=== PATIENT | female | born 1970 | race Caucasian/White ===

== ENCOUNTER → 2016-05-11 | Outpatient (CLI) | payer BC ==
[~2016-05-11] MED LIST: ALBU0.5N2 INH; ALBUAER; BCPILLS; CHOL100027 PO; DROS3TAB12; FEXO1POW; GLIP-197 PO; GLIP2.5T11 PO; LEVO-366; LISI-787 PO; LISIPOW; MONT1TAB3 PO; OMEGCAP2 PO; SYMIN INH
--- NOTE | 2016-05-11 12:01 | DIAGNOSTIC IMAGING REPORT ---
CHEST 2 VIEWS ROUTINE CLINICAL HISTORY: Cough. Asthma exacerbation. COMPARISON STUDY: Chest radiograph June 25, 2011. FINDINGS: Left lung is clear. There is mild right lower lung airspace opacity. Cardiac size is normal. Metastatic contours are normal. There is no evidence of pulmonary edema. IMPRESSION: Mild right lower lung opacity which may reflect an area of pneumonia. Radiographic follow-up to ensure resolution is recommended. Electronically signed by: Dani Argueta M.D. 05/11/2016 11:59 AM Dictated Date/Time: 05/11/2016 11:58 AM
== END | disposition home or self-care (01) ==
LOC: C.RAD1850 11:45
PROVIDERS: ATTEND Family Medicine
DX: J45.901 Unspecified asthma with (acute) exacerbation (principal)

== ENCOUNTER → 2016-06-22 | Outpatient (CLI) | payer BC ==
--- NOTE | 2016-06-23 12:48 | MAMMOGRAPHY REPORT ---
BILATERAL DIGITAL SCREENING MAMMOGRAM TOMOSYNTHESIS WITH CAD: 06/22/2016 CLINICAL HISTORY: Routine screening. Patient has no complaints. TECHNIQUE: Breast tomosynthesis in addition to standard 2D mammography was performed. Current study was also evaluated with a Computer Aided Detection (CAD) system. COMPARISON: Comparison is made to exams dated: 06/18/2015 mammogram, 05/15/2014 mammogram, 05/16/2013 juliet mogram, 04/30/2013 mammogram, 04/25/2012 mammogram, and 04/22/2011 mammogram - [facility] [place]. BREAST COMPOSITION: There are scattered areas of fibroglandular density in both breasts. FINDINGS: There is a metallic biopsy marker within a stable subcentimeter mass in the upper outer po sterior right breast. No new suspicious mass, architectural distortion or cluster of microcalcifica tions is seen. IMPRESSION: ACR BI-RADS CATEGORY 1: NEGATIVE There is no mammographic evidence of malignancy. A 1 year screening mammogram is recommended. The p atient will receive written notification of the results. Approximately 10% of breast cancers are not detected with mammography. A negative mammographic repor t should not delay biopsy if a clinically suggestive mass is present. Lou Chang M.D. ay/:06/23/2016 07:24:14 Trend Investigator: Suzie EPRKINS)(M), [facility] letter sent: Normal 1/2 BI-RADS Code: ACR BI-RADS Category 1: Negative
== END | disposition home or self-care (01) ==
LOC: C.MAMM 07:27
PROVIDERS: ATTEND Family Medicine
DX: Z12.31 Encounter for screening mammogram for malignant neoplasm of breast (principal)

== ENCOUNTER → 2016-06-29 | Outpatient (CLI) | payer BC ==
--- NOTE | 2016-06-29 16:36 | DIAGNOSTIC IMAGING REPORT ---
CHEST 2 VIEWS ROUTINE CLINICAL HISTORY: PNEUMONIA COMPARISON STUDY: 05/11/2016 FINDINGS: The cardiac and mediastinal contours are normal. There is no evidence of focal pulmonary consolidation. There is no evidence of failure. No pleural effusions are visualized.[ There is been interval clearing of the right lower lobe airspace opacity. IMPRESSION: No active disease in the chest. Electronically signed by: Alec Camacho M.D. 06/29/2016 4:33 PM Dictated Date/Time: 06/29/2016 4:33 PM
== END | disposition home or self-care (01) ==
LOC: C.RAD1850 16:23
PROVIDERS: ATTEND Family Medicine
DX: J18.9 Pneumonia, unspecified organism (principal)

== ENCOUNTER → 2017-03-24 | Outpatient (CLI) | payer OTHER ==
[~2017-03-24] MED LIST changes: +SINCALIDE IV ONE; +SODIUM CHLORIDE 0.9% IV ONE
--- NOTE | 2017-03-24 10:13 | DIAGNOSTIC IMAGING REPORT ---
NUCLEAR MEDICINE HEPATOBILIARY SCAN WITH EJECTION FRACTION ANALYSIS CLINICAL HISTORY: RT UPPER QUAD PAIN COMPARISON STUDY: No previous studies for comparison. FINDINGS: The patient was injected with 5.3 mCi of technetium 99m Choletec. Sequential anterior imaging was performed. The gallbladder was first visualized on the 10 minute image. Hepatic excretion appeared unremarkable. There is normal passage of activity into small bowel. At 1 hour, the patient was administered 2.8 mcg of sincalide utilizing a 30 minute intravenous infusion. The gallbladder ejection fraction was normal measuring 73%. IMPRESSION: Normal study. No evidence of cystic duct obstruction. Normal gallbladder ejection fraction of 73%. Electronically signed by: Alec Camacho M.D. 03/24/2017 10:12 AM Dictated Date/Time: 03/24/2017 10:10 AM
== END | disposition home or self-care (01) ==
LOC: C.NUCL 07:32
PROVIDERS: ATTEND Internal Medicine Gastroenterology
DX: R10.11 Right upper quadrant pain (principal)

== ENCOUNTER → 2017-07-18 | Outpatient (CLI) | payer OTHER ==
[~2017-07-18] MED LIST changes: -SINCALIDE IV ONE; -SODIUM CHLORIDE 0.9% IV ONE
--- NOTE | 2017-07-18 18:10 | DIAGNOSTIC IMAGING REPORT ---
L VENOUS DOPP LOWER EXT UNILAT CLINICAL HISTORY: L LEG PAIN pain. Edema. TECHNIQUE: Venous Doppler COMPARISON STUDY: None FINDINGS: Normal study IMPRESSION: Normal venous Doppler left leg. The above report was generated using voice recognition software. It may contain grammatical, syntax or spelling errors. Electronically signed by: Trever Vazquez M.D. 07/18/2017 6:09 PM Dictated Date/Time: 07/18/2017 6:09 PM
[2017-07-18 18:29] LABS: BLOOD UREA NITROGEN 18 mg/dl (7-18); CARBON DIOXIDE 25 mmol/L (21-32); CREATININE 0.89 mg/dl (0.60-1.20); GLUCOSE 147 mg/dl (70-99); POTASSIUM 4.1 mmol/L (3.5-5.1); SODIUM 138 mmol/L (136-145)
== END | disposition home or self-care (01) ==
LOC: C.ULTR 17:24
PROVIDERS: ATTEND Family Medicine
DX: M79.605 Pain in left leg (principal)